=== PATIENT | female | born 1945 | race Caucasian/White ===

== ENCOUNTER 2017-07-19 21:33 | Emergency (ER) | payer BC ==
--- NOTE | 2017-07-19 21:59 | UC ---
Respiratory Complaint HPI - HPI Summary HPI Summary: Pt presets to urgent care with her . pt with PMH significant for remote history of breast cancer and hyperthyroid. Pt states since approx 5pm tonight has increased PND and feeling like "I can't clear my throat and it makes me SOB> " P t states feels like is coughing to try to "clear it" No nasal congestion. No ear pain. Nocp. No lightheadedness. No wheezing. No n/v/d. No sick contact. Pt used a cough drop but no other products. Pt denies palpitations. Pt's medications reviewed at this visit. - History of Current Complaint Chief Complaint: UCGeneralIllness Stated Complaint: SHORTNESS OF BREATH Hx Obtained From: Patient, Family/Pain Coordinator Timing: Constant Severity Initially: Mild Severity Currently: Mild Character: Cough: Nonproductive Associated Signs And Symptoms: Positive: Dyspnea - Allergies/Home Medications Allergies/Adverse Reactions: Allergies Allergy/AdvReac Type Severity Reaction Status Date / Time No Known Allergies Allergy Verified 07/19/17 21:51 Home Medications: Home Medications Cholecalciferol [Vitamin D] 1,000 unit PO DAILY 07/19/17 [History Confirmed ] Levothyroxine TAB* [Synthroid TAB*] 150 mcg PO DAILY 07/19/17 [History Confirmed 07/19/17] Lisinopril TAB* [Prinivil TAB*] 20 mg PO DAILY 07/19/17 [History Confirmed 07/19] Omeprazole CAP* [Prilosec CAP* 20 MG] 20 mg PO DAILY 07/19/17 [History Confirmed 07/19/17] Raloxifene (NF) [Evista(NF)] 60 mg PO DAILY 07/19/17 [History Confirmed 07/19/17 ] PMH/Surg Hx/FS Hx/Imm Hx Previously Healthy: Yes Endocrine History: Thyroid Disease Cancer History: Breast Cancer - Surgical History Surgical History: Yes Surgery Procedure, Year, and Place: right side lumpectomy 08/2006 - Family History Known Family History: Positive: Hypertension - Social History Occupation: Retired Lives: With Family Alcohol Use: Daily - 4-5/day Alcohol Amount: 2-4 drinks daily Substance Use Type: None Smoking Status (MU): Former Smoker When Did the Patient Quit Smoking/Using Tobacco: 32 years - Immunization History Most Recent Influenza Vaccination: 06/2017 Review of Systems Constitutional: Negative Skin: Negative Eyes: Negative ENT: Negative, Other - PND Respiratory: Shortness Of Breath, Cough Cardiovascular: Negative Gastrointestinal: Negative Genitourinary: Negative Motor: Negative Neurovascular: Negative Musculoskeletal: Negative Neurological: Negative Psychological: Negative All Other Systems Reviewed And Are Negative: Yes Physical Exam Triage Information Reviewed: Yes Appearance: Well-Appearing, No Pain Distress Vital Signs: Initial Vital Signs Temp 98.5 F 07/19/17 21:36 Pulse 88 07/19/17 21:36 Resp 19 07/19/17 21:36 BP 119/69 07/19/17 21:36 Pulse Ox 96 07/19/17 21:36 Vital Signs Reviewed: Yes Eye Exam: Normal Eyes: Positive: Conjunctiva Clear ENT: Positive: Hearing grossly normal, TMs normal, Other: - mild turbinate inflammation + PND no exudate, no erythema Dental Exam: Normal Neck exam: Normal Neck: Positive: Supple, Nontender, No Lymphadenopathy Respiratory Exam: Normal Respiratory: Positive: Chest non-tender, Lungs clear, Normal breath sounds, No respiratory distress, No accessory muscle use, Other: - Pt with intermittent cough, speaking easy sentences No accesorry muscle use Cardiovascular: Positive: No Murmur, Pulses Normal. Negative: RRR - Pt with slight irregular rate no m/r Abdominal Exam: Normal Abdomen Description: Positive: Nontender, No Organomegaly, Soft Bowel Sounds: Positive: Present Musculoskeletal Exam: Normal Musculoskeletal: Positive: Strength Intact, ROM Intact Neurological Exam: Normal Neurological: Positive: Alert Psychological Exam: Normal Psychological: Positive: Normal Response To Family Skin Exam: Normal UC Diagnostic Evaluation - Laboratory O2 Sat by Pulse Oximetry: 96 - EKG Cardiac Rate: Other Rate - normal rate, frequent PAC - sinus bigeminty, no acute ST. T wave changes Respiratory Course/Dx - Course Course Of Treatment: Pt presents with feeling congested in throat with PND and cough. Pt reports mild SOB. On exam, pt well appearing with PND. Pt noted to have frequent PAC - PT without a h/o or heart rhythm abnormalities. I had a long conversation with regarding the EKG and my concerns - differential includes PE, pericardial effusion, CHF, cardioyopathy (pt with h/o daily ETOH use). Pt adamanet "won't spend all night in the emergency department.". Pt was walked for amb sat - sat dropped to 91-92% - pt states she did not feel symptomatic. I again explained my concerns to the patient and the risk - pt left AMA. Pt given rx for nasal congestion and PND. recommend avoid decongestants second to arrhythmia. Pt encourage to go to ED or [id number] if sx change or other concerns. Pt given copy of EKG to give to her PCP. Pt to call PCP in am - Differential Dx/Diagnosis Provider Diagnoses: Pnd, cough, AMA Discharge - Discharge Plan Condition: Good Disposition: AGAINST MEDICAL ADVICE Prescriptions: Fluticasone NASAL SPRAY 50MCG* [Flonase NASAL SPRAY 50MCG*] 2 spray BOTH NARES DAILY #1 btl Patient Education Materials: Against Medical Advice (ED) Referrals: Hector Dover DO [Primary Care Provider] - Additional Instructions: The doctor that evaluated you tonight was concerned regarding your EKG as it showed extra early beats as well as your oxygen level which dipped low when you walked. The doctor did not know what was causing this and recommended you go to the emergency department for further evaluation. you declined going citing personal reasons It is recommended you use a nasal spray as prescribed for your post nasal drip It is recommended you take an allergy medications such as zyrtec or claritin to help with your post nasal drip Contact your doctor tomorrow morning to discuss this visit and make a follow-up appointment. Contact your doctor, go to the emergency department or call 911 with ANY questions or concerns
== END 2017-07-19 22:37 | disposition left against medical advice (07) ==
LOC: UCCORT 21:33
DX: R09.82 Postnasal drip (principal); R05 Cough; Z53.21 Procedure and treatment not carried out due to patient leaving prior to being seen by health care provider; Z87.891 Personal history of nicotine dependence; E05.90 Thyrotoxicosis, unspecified without thyrotoxic crisis or storm; Z85.3 Personal history of malignant neoplasm of breast
CPT/HCPCS: 93005; 99201; G0463

== ENCOUNTER 2022-01-26 10:05 | Inpatient (IN) ==
[2022-01-26 12:21] LABS: ABS Lymphocytes 0.8 10^3/ul (1.0-4.8); ABS Monocytes 0.7 10^3/ul (0-0.8); ABS Neutrophils 8.7 10^3/ul (1.5-7.7); Eosinophil % 0.4 %; Hematocrit 31 % (35-47); Hemoglobin 10.5 g/dL (12.0-16.0); Lymphocyte % 8.1 %; Mean Corpuscular HGB Conc 34 g/dL (31-36); Mean Corpuscular Hemoglobin 34 pg (27-31); Mean Corpuscular Volume 101 fL (80-97); Mean Platelet Volume 7.7 fL (7.4-10.4); Nucleated Red Blood Cells % 0.1; Platelet Count 207 10^3/uL (150-450); Red Blood Count 3.05 10^6 /uL (3.70-4.87); Red Cell Distribution Width 15 % (10-15); White Blood Count 10.4 10^3/uL (3.5-10.8)
[2022-01-26 12:37] LABS: Albumin 2.7 g/dL (3.2-5.2); Calcium 8.7 mg/dL (8.6-10.3); Potassium 4.8 mmol/L (3.5-5.0); Total Bilirubin 1.2 mg/dL (0.2-1.0)
[2022-01-26 12:43] LABS: Albumin/Globulin Ratio 0.7 (1-3); Globulin 3.9 g/dL (2-4); Total Protein 6.6 g/dL (6.4-8.9); eGFR CKD-EPI 6.7 (>60)
[2022-01-26] MEDS ORDERED: Ondansetron 4 mg VIAL 2 MG/ML 2 ml VIAL IV PRN (13:01)
[2022-01-26] MEDS: NS 0.9% 1000 ml BAG 1,000 ML IV SCH (16:21)
[2022-01-26] MEDS: Heparin 5000 UNITS/ML 1 mL VIAL SUBCUT SCH ×2 (18:39→23:56)
[2022-01-27] MEDS: Heparin 5000 UNITS/ML 1 mL VIAL SUBCUT SCH ×4 (01:13→21:06)
[2022-01-27] MEDS: NS 0.9% 1000 ml BAG 1,000 ML IV SCH ×2 (02:07→10:20)
[2022-01-27 05:53] LABS: ABS Eosinophils 0.1 10^3/ul (0-0.6); ABS Lymphocytes 1.1 10^3/ul (1.0-4.8); ABS Monocytes 0.7 10^3/ul (0-0.8); ABS Neutrophils 6.9 10^3/ul (1.5-7.7); Eosinophil % 1.2 %; Hematocrit 28 % (35-47); Hemoglobin 9.5 g/dL (12.0-16.0); Lymphocyte % 12.6 %; Mean Corpuscular HGB Conc 34 g/dL (31-36); Mean Corpuscular Hemoglobin 34 pg (27-31); Mean Corpuscular Volume 101 fL (80-97); Platelet Count 166 10^3/uL (150-450); Red Blood Count 2.76 10^6 /uL (3.70-4.87); Red Cell Distribution Width 15 % (10-15); White Blood Count 8.8 10^3/uL (3.5-10.8)
[2022-01-27 06:11] LABS: Albumin 2.3 g/dL (3.2-5.2); Albumin/Globulin Ratio 0.7 (1-3); Calcium 7.9 mg/dL (8.6-10.3); Globulin 3.1 g/dL (2-4); Total Bilirubin 1.2 mg/dL (0.2-1.0); Total Protein 5.4 g/dL (6.4-8.9); eGFR CKD-EPI 7.5 (>60)
[2022-01-27] MEDS ORDERED: NS 0.9% 500 ML BAG IV ONE (08:15)
[2022-01-27 09:00] LABS: Urine Appearance Clear; Urine Bilirubin Negative (Negative); Urine Blood Negative (Negative); Urine Color Yellow; Urine Glucose Negative (Negative); Urine Ketones Negative (Negative); Urine Nitrite Negative (Negative); Urine Protein Negative (Negative); Urine Specific Gravity 1.014 (1.002-1.030); Urine Urobilinogen Negative (Negative)
[2022-01-27] MEDS: Cholecalciferol (VIT D3) 1,000 unit TAB PO SCH (10:13)
[2022-01-27] MEDS: CMCS: Raloxifene 60 mg TAB (NF) PO SCH (10:13)
[2022-01-27] MEDS: Fluticasone NASAL SPRAY 50MCG 16 gm SPRAY BTL BOTH NARES SCH (10:13)
[2022-01-27 10:53] LABS: C Reactive Protein 104.17 mg/L (<8.01)
[2022-01-27] MEDS ORDERED: Albumin Human 25% 25 GM/100 ML BTL IV ONE (13:00)
[2022-01-27 18:47] LABS: Body Fluid WBC 6065 /mcL
[2022-01-27 19:50] LABS: Body Fluid Appearance Cloudy; Body Fluid Color Red; Body Fluid Mono 64 %; Body Fluid Source Peritonial Fluid; Body Fluid Total Cells Counted 200
[2022-01-28] MEDS: NS 0.9% 1000 ml BAG 1,000 ML IV SCH ×2 (00:08→10:39)
[2022-01-28] MEDS: Heparin 5000 UNITS/ML 1 mL VIAL SUBCUT SCH ×3 (04:49→17:57)
[2022-01-28 05:40] LABS: ABS Eosinophils 0.1 10^3/ul (0-0.6); ABS Lymphocytes 0.7 10^3/ul (1.0-4.8); ABS Monocytes 0.6 10^3/ul (0-0.8); ABS Neutrophils 6.8 10^3/ul (1.5-7.7); Eosinophil % 1.4 %; Hematocrit 28 % (35-47); Hemoglobin 9.5 g/dL (12.0-16.0); Lymphocyte % 8.7 %; Mean Corpuscular HGB Conc 33 g/dL (31-36); Mean Corpuscular Hemoglobin 34 pg (27-31); Mean Corpuscular Volume 102 fL (80-97); Mean Platelet Volume 7.5 fL (7.4-10.4); Platelet Count 145 10^3/uL (150-450); Red Cell Distribution Width 15 % (10-15); White Blood Count 8.2 10^3/uL (3.5-10.8)
[2022-01-28 06:22] LABS: Albumin 2.3 g/dL (3.2-5.2); Albumin/Globulin Ratio 0.9 (1-3); Globulin 2.6 g/dL (2-4); Potassium 4.8 mmol/L (3.5-5.0); Total Bilirubin 1.2 mg/dL (0.2-1.0); Total Protein 4.9 g/dL (6.4-8.9); eGFR CKD-EPI 9.3 (>60)
[2022-01-28] MEDS: Fluticasone NASAL SPRAY 50MCG 16 gm SPRAY BTL BOTH NARES SCH (08:44)
[2022-01-28] MEDS: Cholecalciferol (VIT D3) 1,000 unit TAB PO SCH (08:44)
[2022-01-28] MEDS: CMCS: Raloxifene 60 mg TAB (NF) PO SCH (08:44)
[2022-01-29 06:39] LABS: Albumin 2.3 g/dL (3.2-5.2); Albumin/Globulin Ratio 0.9 (1-3); Calcium 8.1 mg/dL (8.6-10.3); Globulin 2.7 g/dL (2-4); Potassium 4.7 mmol/L (3.5-5.0); Total Bilirubin 1.1 mg/dL (0.2-1.0); eGFR CKD-EPI 11.5 (>60)
[2022-01-29] MEDS: Fluticasone NASAL SPRAY 50MCG 16 gm SPRAY BTL BOTH NARES SCH (08:16)
[2022-01-29] MEDS: Cholecalciferol (VIT D3) 1,000 unit TAB PO SCH (08:17)
[2022-01-29] MEDS: CMCS: Raloxifene 60 mg TAB (NF) PO SCH (08:20)
[2022-01-29] MEDS: Heparin 5000 UNITS/ML 1 mL VIAL SUBCUT SCH ×4 (08:22→23:01)
[2022-01-29] MEDS ORDERED: Albumin Human 25% 100 GM/400 ML BTL IV SCH (13:00)
[2022-01-29] MEDS: NS 0.9% 1000 ml BAG 1,000 ML IV SCH (14:26)
[2022-01-30 06:40] LABS: Albumin 3.1 g/dL (3.2-5.2); Albumin/Globulin Ratio 1.6 (1-3); Calcium 8.6 mg/dL (8.6-10.3); Potassium 4.6 mmol/L (3.5-5.0); Total Bilirubin 1.7 mg/dL (0.2-1.0); Total Protein 5.1 g/dL (6.4-8.9); eGFR CKD-EPI 14.1 (>60)
[2022-01-30] MEDS: Cholecalciferol (VIT D3) 1,000 unit TAB PO SCH (08:23)
[2022-01-30] MEDS: Heparin 5000 UNITS/ML 1 mL VIAL SUBCUT SCH ×3 (08:24→22:45)
[2022-01-30] MEDS: Fluticasone NASAL SPRAY 50MCG 16 gm SPRAY BTL BOTH NARES SCH (08:25)
[2022-01-30] MEDS: NS 0.9% 1000 ml BAG 1,000 ML IV SCH (09:17)
[2022-01-30 09:42] LABS: Albumin, BF 0.9 g/dL; Fluid Type, Albumin ascites
[2022-01-30] MEDS: CMCS: Raloxifene 60 mg TAB (NF) PO SCH (10:10)
[2022-01-30] MEDS: Albumin Human 25% 25 GM/100 ML BTL IV SCH ×4 (12:42→22:26)
[2022-01-31] MEDS: Cholecalciferol (VIT D3) 1,000 unit TAB PO SCH (08:36)
[2022-01-31] MEDS: CMCS: Raloxifene 60 mg TAB (NF) PO SCH (08:36)
[2022-01-31] MEDS: Heparin 5000 UNITS/ML 1 mL VIAL SUBCUT SCH ×2 (08:37→18:36)
[2022-01-31] MEDS: Fluticasone NASAL SPRAY 50MCG 16 gm SPRAY BTL BOTH NARES SCH (08:37)
[2022-01-31] MEDS: Albumin Human 25% 25 GM/100 ML BTL IV SCH ×4 (13:39→21:08)
[2022-01-31] MEDS: NS 0.9% 1000 ml BAG 1,000 ML IV SCH (15:41)
[2022-01-31 16:43] VITALS: BP 128/59
[2022-01-31] MEDS ORDERED: Lorazepam PYXIS KEY PRN (17:33)
[2022-02-01] MEDS: LORazepam 2 mg VIAL 1 ml IV PUSH PRN (02:04)
[2022-02-01] MEDS: Heparin 5000 UNITS/ML 1 mL VIAL SUBCUT SCH ×4 (02:06→23:54)
[2022-02-01] MEDS: CMCS: Raloxifene 60 mg TAB (NF) PO SCH (09:47)
[2022-02-01] MEDS: Fluticasone NASAL SPRAY 50MCG 16 gm SPRAY BTL BOTH NARES SCH (09:47)
[2022-02-02] MEDS: LORazepam 2 mg VIAL 1 ml IV PUSH PRN ×2 (04:56→12:27)
[2022-02-02 05:57] LABS: Rapid COVID-19 Molecular Undetected (Undetected)
[2022-02-02] MEDS: CMCS: Raloxifene 60 mg TAB (NF) PO SCH (13:20)
== END 2022-02-02 13:00 | disposition hospice, inpatient (51) | DRG 435 ==
LOC: CHOA 10:05 → MEDTELE 15:28
PROVIDERS: ADMIT Internal Medicine Hematology & Oncology; ATTEND Internal Medicine Hematology & Oncology